=== PATIENT | female | born 2005 | race African-American/Black ===

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

== ENCOUNTER 2024-03-02 10:55 | Emergency (ER) | payer OTHER ==
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
[2024-03-02] MEDS ORDERED: IBUPROFEN 200 MG TAB PO ONE (15:22)
[2024-03-02 16:05] VITALS: BP 121/90; TEMP 97.7; O2SAT 100
== END 2024-03-02 15:33 | disposition home or self-care (01) ==
LOC: ER 10:55
DX: S29.012A Strain of muscle and tendon of back wall of thorax, initial encounter (principal); V49.50XA Passenger injured in collision with unspecified motor vehicles in traffic accident, initial encounter; M54.50 Low back pain, unspecified; R29.91 Unspecified symptoms and signs involving the musculoskeletal system
CPT/HCPCS: 70450; 71250; 72125; 74176; 99283

== ENCOUNTER 2024-12-01 10:42 | Emergency (ER) | payer BC ==
--- NOTE | 2024-12-01 12:29 | EDPHYS ---
Physician Documentation [facility] Name: Ricardo Alonzo Age: 19 yrs Sex: Female : 2005 Arrival Date: 12/01/2024 Time: 10:42 Bed 25 Private MD: ED Physician Slava Montalvo HPI: 12/01 12:22 This 19 yrs old Female presents to ER via Ambulatory with complaints of Eye lilli Pain. 12:22 The patient is experiencing burning. Onset: The symptoms/episode began/occurred 1 lilli day(s) ago. Duration: the symptoms are intermittent. Aggravated by nothing. Alleviated by nothing. Associated signs and symptoms: Pertinent positives: None. Pertinent negatives: None. Patient does not utilize any form of vision correction. Severity of symptoms: At their worst the symptoms were mild in the emergency department the symptoms are unchanged. The patient has not experienced similar symptoms in the past. 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 - Infectious Disease History:: Denies. - Social history:: Smoking status: Reported history of juuling and/or vaping. - Family history:: not pertinent. ROS: 12:22 Constitutional: Negative for fever, chills, and weight loss, ENT: Negative for injury, lilli pain, and discharge, Neck: Negative for injury, pain, and swelling, Cardiovascular: Negative for chest pain, palpitations, and edema, Respiratory: Negative for shortness of breath, cough, wheezing, and pleuritic chest pain, Abdomen/GI: Negative for abdominal pain, nausea, vomiting, diarrhea, and constipation, Back: Negative for injury and pain, : Negative for injury, bleeding, discharge, and swelling, MS/Extremity: Negative for injury and deformity, Skin: Negative for injury, rash, and discoloration, Neuro: Negative for headache, weakness, numbness, tingling, and seizure, Psych: Negative for depression, anxiety, suicide ideation, homicidal ideation, and hallucinations, Allergy/Immunology: Negative for hives, rash, and allergies, Endocrine: Negative for neck swelling, polydipsia, polyuria, polyphagia, and marked weight changes, Hematologic/Lymphatic: Negative for swollen nodes, abnormal bleeding, and unusual bruising, 12:22 Eyes: Positive for pain, Exam: 12:22 Constitutional: This is a well developed, well nourished patient who is awake, alert, lilli and in no acute distress. Head/Face: Normocephalic, atraumatic. Eyes: Pupils equal round and reactive to light, extra-ocular motions intact. Lids and lashes normal. Conjunctiva and sclera are non-icteric and not injected. Cornea within normal limits. Periorbital areas with no swelling, redness, or edema. ENT: Nares patent. No nasal discharge, no septal abnormalities noted. Tympanic membranes are normal and external auditory canals are clear. Oropharynx with no redness, swelling, or masses, exudates, or evidence of obstruction, uvula midline. Mucous membranes moist. Neck: Trachea midline, no thyromegaly or masses palpated, and no cervical lymphadenopathy. Supple, full range of motion without nuchal rigidity, or vertebral point tenderness. No Meningismus. Chest/axilla: Normal chest wall appearance and motion. Nontender with no deformity. No lesions are appreciated. Cardiovascular: Regular rate and rhythm with a normal S1 and S2. No gallops, murmurs, or rubs. Normal PMI, no JVD. No pulse deficits. Respiratory: Lungs have equal breath sounds bilaterally, clear to auscultation and percussion. No rales, rhonchi or wheezes noted. No increased work of breathing, no retractions or nasal flaring. Abdomen/GI: Soft, non-tender, with normal bowel sounds. No distension or tympany. No guarding or rebound. No evidence of tenderness throughout. Back: No spinal tenderness. No costovertebral tenderness. Full range of motion. Skin: Warm, dry with normal turgor. Normal color with no rashes, no lesions, and no evidence of cellulitis. MS/ Extremity: Pulses equal, no cyanosis. Neurovascular intact. Full, normal range of motion., bilateral aka Neuro: Awake and alert, GCS 15, oriented to person, place, time, and situation. Cranial nerves II-XII grossly intact. Motor strength 5/5 in all extremities. Sensory grossly intact. Cerebellar exam normal. Normal gait. Psych: Awake, alert, with orientation to person, place and time. Behavior, mood, and affect are within normal limits. 12:22 Eyes: Periorbital structures: appear normal, no acute changes, no abrasion, no cellulitis, no contusion, no ecchymosis, no erythema, no laceration, no swelling, Pupils: no acute changes, equal, round, and reactive to light and accomodation, Extraocular movements: no acute changes, Conjunctiva: normal, Corneas: are normal, Sclera: no appreciated abnormality, Anterior chamber: normal, no hyphema, on appreciated narrow angle closure, no acute changes, Lids and lashes: appear normal, no acute changes, funduscopic exam reveals no obvious abnormalities, Visual dos santos: are intact, Nystagmus: is not appreciated, Vital Signs: 10:58 BP 132 / 90; Pulse 67; Resp 16; Temp 98.3; Pulse Ox 100% on R/A; Weight 158.76 kg; dd2 Height 5 ft. 7 in. ; Pain 8/10; 12:38 BP 130 / 90; Pulse 71; Resp 17; ll1 13:10 BP 106 / 56; Pulse 54; Resp 18; Pulse Ox 100% ; rg5 14:00 BP 102 / 70; Pulse 59; Resp 18; Pulse Ox 100% ; rg5 15:00 BP 106 / 78; Pulse 81; Resp 18; Pulse Ox 100% ; rg5 16:45 BP 119 / 91; Pulse 77; Resp 18; Pulse Ox 100% ; rg5 10:58 Body Mass Index 54.82 (158.76 kg, 170.18 cm) dd2 10:58 Pain Scale: Adult dd2 Procedures: 17:17 Lumbar Puncture: Patient placed in left lateral decubitus position. Prepped with [facility] Betadine. Draped using sterile technique. Procedure unsuccessful. Patient tolerated well. will be rescheduled Friday as out patient, Dr Bunny SANTANA. MDM: 10:51 Medical Screening Exam initiated 11:07 Medical Screening Exam initiated [facility] 12:25 Differential diagnosis: Corneal abrasion of Corneal ulcer of Foreign body in Acute lilli iritis of Acute glaucoma in Ultraviolet keratitis in both eyes. Data reviewed: vital signs, nurses notes. Consideration of Admission/Observation Escalation of care including admission/observation considered. I considered the following discharge prescriptions or medication management in the emergency department Medications were administered in the Emergency Department. See MAR. Test considered but Not performed: Labs: NO LABS. Historians other than the Patient: PT WELL INFORMED. Care significantly affected by the following chronic conditions: NONE , OBESE. 12/01 12:39 Order name: CBC with Diff; Complete Time: 14: [facility] 12/01 12:39 Order name: CMP; Complete Time: 14: [facility] 12/01 12:39 Order name: UA Rfx Oj Cult if indicated; Complete Time: 14: [facility] 12/01 12:39 Order name: PREGU; Complete Time: 14: [facility] 12/01 12:39 Order name: PT-INR; Complete Time: 14: [facility] 12/01 12:39 Order name: CT Head Brain wo Cont; Complete Time: 14: [facility] 12/01 15:06 Order name: Lumbar Puncture Consent; Complete Time: 15:37 [facility] 12/01 15:06 Order name: Lumbar Puncture Setup; Complete Time: 15:37 [facility] Administered Medications: 13:08 Drug: NS 0.9% IV 500 ml 500 ml IV at 100 ml/hr once; to be given as a bolus over 30 rg5 minutes Volume: 500 ml; Route: IV; Rate: 100 ml/hr; Site: right antecubital; 13:40 Follow up: IV Status: Completed infusion; IV Intake: 500ml rg5 15:07 Follow up: IV Status: Completed infusion rg5 Disposition Summary: 12/01/24 16:41 Discharge Ordered Notes: Location: Home(12/01/24 16:41) lilli Problem: new(12/01/24 16:41) lilli Symptoms: have improved(12/01/24 16:41) lilli Condition: Stable(12/01/24 16:41) lilli Diagnosis - Headache lilli - Other visual disturbances - blurry lilli - Benign intracranial hypertension lilli Followup: lilli - With: Private Physician - When: 2 - 3 days - Reason: Recheck today's complaints, Continuance of care, Re-evaluation by your physician Followup: lilli - With: Michael Wheat MD - When: 2 - 3 days - Reason: Recheck today's complaints, Continuance of care, Re-evaluation by your physician Followup: lilli - With: Omar Alejandra MD - When: 2 - 3 days - Reason: Recheck today's complaints, Continuance of care, Re-evaluation by your physician Discharge Instructions: - Discharge Summary Sheet lilli - Blurred Vision, Adult lilli - General Headache Without Cause lilli - Visual Disturbances lilli - Obesity, Adult lilli - General Headache Without Cause, [id number] lilli - Obesity, Adult, Uyoa-fr-Verd lilli Forms: - Medication Reconciliation Form lilli - Antibiotic Education lilli - Prescription Opioid Use lilli - Patient Portal Instructions lilli - Leadership Thank You Letter lilli Signatures: Dispatcher [employer] EDTuyet Hitchcock, FISH CULTURIST-C FISH CULTURIST-Slava Anderson MD MD cha Gallardo, Rommel RN RN rg5 LISANDRA DSA RN RN dd2 Corrections: (The following items were deleted from the chart) 12:38 12:28 Home lilli lilli 12:38 12:28 new lilli lilli 12:38 12:28 have improved lilli lilli 12:38 12:28 Stable lilli lilli 12:38 12:28 Ocular pain, right eye lilli lilli 12:38 12:28 Ocular pain, left eye lilli lilli 17:19 15:11 Lumbar Puncture: Patient placed in left lateral decubitus position. lilli lilli
--- NOTE | 2024-12-01 12:29 | ER ---
Nurse's Notes [facility] Name: Ricardo Alonzo Age: 19 yrs Sex: Female : 2005 Arrival Date: 12/01/2024 Time: 10:42 Bed 25 Private MD: Diagnosis: Headache;Other visual disturbances-blurry;Benign intracranial hypertension Presentation: 12/01 10:58 Chief complaint: Patient states: REDNESS AND PAIN TO BOTH EYES THAT BEGAN THIS MORNING. dd2 Coronavirus screen: At this time, the client does not indicate any symptoms associated with coronavirus-19. Ebola Screen: No symptoms or risks identified at this time. Mechanism of Injury: No Mechanism of Injury. The patient denies any loss of vision. Initial Sepsis Screen: Does the patient meet any 2 criteria? No. Patient's initial sepsis screen is negative. Does the patient have a suspected source of infection? No. Patient's initial sepsis screen is negative. Risk Assessment: Do you want to hurt yourself or someone else? Patient reports no desire to harm self or others. Onset of symptoms was December 01, 2024. 10:58 Method Of Arrival: Ambulatory dd2 10:58 Acuity: GAMA 3 dd2 Triage Assessment: 11:01 General: Appears uncomfortable, Behavior is calm, cooperative, appropriate for age. dd2 Pain: Complains of pain in right eye and left eye Pain currently is 8 out of 10 on a pain scale. EENT: Sclera/Cornea are reddened in right eye and left eye Reports pain in right eye and left eye. 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 - Infectious Disease History:: Denies. - Social history:: Smoking status: Reported history of juuling and/or vaping. - Family history:: not pertinent. Screenin:00 [facility] ED Fall Risk Assessment (Adult) History of falling in the last 3 months, rg5 including since admission No falls in past 3 months (0 pts) Confusion or Disorientation No (0 pts) Intoxicated or Sedated No (0 pts) Impaired Gait No (0 pts) Mobility Assist Device Used No (0 pt) Altered Elimination No (0 pt) Score/Fall Risk Level 0 - 2 = Low Risk Oriented to surroundings, Maintained a safe environment. Abuse screen: Denies threats or abuse. Nutritional screening: No deficits noted. Tuberculosis screening: No symptoms or risk factors identified. Assessment: 11:37 Reassessment: No changes from previously documented assessment. Patient and/or family ll1 updated on plan of care and expected duration. Pain level reassessed. 12:42 Reassessment: No changes from previously documented assessment. Patient and/or family ll1 updated on plan of care and expected duration. Pain level reassessed. Patient is alert, oriented x 3, equal unlabored respirations, skin warm/dry/pink. 13:00 General: Appears in no apparent distress. uncomfortable, Behavior is calm, cooperative, rg5 appropriate for age. Pain: Complains of pain in right eye and left eye Quality of pain is described as aching. Neuro: Level of Consciousness is awake, alert, obeys commands. Cardiovascular: Denies chest pain, Patient's skin is warm and dry. Respiratory: Airway is patent Respiratory effort is even, unlabored. GI: Abdomen is round obese. : No signs and/or symptoms were reported regarding the genitourinary system. EENT: No signs and/or symptoms were reported regarding the EENT system. Eyes Reports pain in right eye and left eye. Derm: Skin is intact, Skin is dry, Skin is normal. Musculoskeletal: Circulation, motion, and sensation intact. Range of motion: intact in all extremities. 14:10 Reassessment: No changes from previously documented assessment. Patient and/or family rg5 updated on plan of care and expected duration. Pain level reassessed. Patient is alert, oriented x 3, equal unlabored respirations, skin warm/dry/pink. 15:00 Reassessment: No changes from previously documented assessment. Patient and/or family rg5 updated on plan of care and expected duration. Pain level reassessed. Patient is alert, oriented x 3, equal unlabored respirations, skin warm/dry/pink. 16:30 Reassessment: No changes from previously documented assessment. Patient and/or family rg5 updated on plan of care and expected duration. Pain level reassessed. Patient is alert, oriented x 3, equal unlabored respirations, skin warm/dry/pink. Vital Signs: 10:58 BP 132 / 90; Pulse 67; Resp 16; Temp 98.3; Pulse Ox 100% on R/A; Weight 158.76 kg; dd2 Height 5 ft. 7 in. ; Pain 8/10; 12:38 BP 130 / 90; Pulse 71; Resp 17; ll1 13:10 BP 106 / 56; Pulse 54; Resp 18; Pulse Ox 100% ; rg5 14:00 BP 102 / 70; Pulse 59; Resp 18; Pulse Ox 100% ; rg5 15:00 BP 106 / 78; Pulse 81; Resp 18; Pulse Ox 100% ; rg5 16:45 BP 119 / 91; Pulse 77; Resp 18; Pulse Ox 100% ; rg5 10:58 Body Mass Index 54.82 (158.76 kg, 170.18 cm) dd2 10:58 Pain Scale: Adult dd2 ED Course: 10:46 Patient arrived in ED. mr 10:51 Tuyet Christianson, [facility] kb 10:51 Slava Montalvo MD is Attending Physician. kb 11:01 Triage completed. dd2 11:01 Arm band placed on right wrist. dd2 11:07 Slava Montalvo MD is Attending Physician. lilli 11:37 Patient placed in an exam room, on a stretcher. ll1 12:28 Omar Alejandra MD is Referral Physician. lilli 12:42 Patient placed in an exam room, on a stretcher. ll1 12:46 Rafita Duff, RN is Primary Nurse. rg5 12:51 PT-INR Sent. bc6 12:52 CMP Sent. bc6 12:52 CBC with Diff Sent. bc6 12:52 Initial lab(s) drawn, by co, sent to lab. Inserted saline lock: 20 gauge in right bc6 antecubital area, using aseptic technique. Blood collected. Flushed with 10 mL NS. 13:00 Patient has correct armband on for positive identification. Side rails up X 1. Door rg5 closed. Noise minimized. 13:00 No provider procedures requiring assistance completed. rg5 13:03 CT Head Brain wo Cont In Process Unspecified. EDMS 16:41 Michael Wheat MD is Referral Physician. lilli 16:41 Omar Alejandra MD is Referral Physician. lilli 17:21 Provided Education on: post er care. rg5 17:21 IV discontinued, bleeding controlled, No redness/swelling at site. Pressure dressing rg5 applied. Administered Medications: 13:08 Drug: NS 0.9% IV 500 ml 500 ml IV at 100 ml/hr once; to be given as a bolus over 30 rg5 minutes Volume: 500 ml; Route: IV; Rate: 100 ml/hr; Site: right antecubital; 13:40 Follow up: IV Status: Completed infusion; IV Intake: 500ml rg5 15:07 Follow up: IV Status: Completed infusion rg5 Medication: 13:00 VIS not applicable for this client. rg5 Intake: 13:40 IV: 500ml; Total: 500ml. rg5 Outcome: 12:28 Discharge ordered by . lilli 16:41 Discharge ordered by . lilli 17:21 Discharged to home ambulatory, rg5 17:21 Condition: stable 17:21 Discharge instructions given to patient, 17:29 Patient left the ED. rg5 Signatures: Dispatcher [employer] EDMS Tuyet Christianson, CARRY IN WORKER-C CARRY IN WORKER-Ckb Slava Montalvo MD MD cha Rivera, Mary, Reg Reg mr Inna Aguirre, RN RN ll1 Daylin Tomlinson6 Rafita Duff RN RN rg5 LISANDRA DAS RN RN dd2
[2024-12-01 13:00] LABS: Absolute Lymphocytes (CBC) 2.4 K/uL (0.7-4.9); Hematocrit 36.2 % (36.0-45.0); Hemoglobin 12.3 g/dL (12.0-15.0); MCH 29.7 pg (27.0-35.0); MCHC 34.0 g/dL (32.0-36.0); MCV 87.4 fL (80-100); MPV 7.8 fL (7.6-11.3); Nucleated RBC Absolute Count 0.0 (0-0); Nucleated Red Blood Cells % 0.1 % (0-0); RBC Red Blood Cell Count 4.14 M/uL (3.86-4.86); White Blood Count 6.80 thou/uL (4.3-10.9)
[2024-12-01] MEDS ORDERED: NA CHLORIDE 0.9% 500 ML ONE (13:08)
[2024-12-01 13:14] LABS: PT Prothrombin Time 10.8 SECONDS (10-13.0); Protime INR 0.95
[2024-12-01 13:18] LABS: Sqamous Epithelial <5 /HPF (None Seen); Urine Culture Reflex Order NOT NEEDED; Urine Microscopic Reflex YN ORDER UMIC
[2024-12-01 13:20] LABS: ALT/SGPT 59.0 U/L (13-56); AST/SGOT 29.0 U/L (15-37); Albumin 3.3 g/dL (3.4-5.0); Albumin/Globulin Ratio 0.8 (1.1-1.8); Alkaline Phosphatase 40.0 U/L (45-117); Anion Gap 9.1 mEq/L (5.0-15.0); BUN Blood Urea Nitrogen 12.0 mg/dL (7-18); Globulin 4.2 g/dL (2.3-3.5); Glucose Level 95.0 mg/dL (74-106); Potassium 4.1 mEq/L (3.5-5.1)
--- NOTE | 2024-12-01 13:44 | RAD REPORT ---
EXAM: CT Head Brain Wo Cont HISTORY: HEADACHE COMPARISON: 03/02/2024 TECHNIQUE: Multiple contiguous axial images were obtained for a CT of the brain without contrast. Sag ittal and coronal reformats were performed. One or more of the following dose reduction techniques were used: Automated exposure control, adjus tment of the mA and kV according to patient size, and iterative reconstruction. Unless otherwise specified, incidental findings do not require dedicated imaging follow-up. FINDINGS: No evidence of hydrocephalus, intracranial hemorrhage, or extra-axial fluid collection. The brain is normal in morphology. The calvarium is intact. The visualized paranasal sinuses and mastoid air cells are essentially clear . IMPRESSION: No evidence of acute intracranial abnormality.
[2024-12-01] MEDS ORDERED: LIDOCAINE 1% 20 ML MDV ONE (15:32)
[2024-12-01 17:33] VITALS: TEMP 98.3; O2SAT 100
[2024-12-01 17:42] VITALS: BP 119/91
== END 2024-12-01 17:29 | disposition home or self-care (01) ==
LOC: ER 10:42
DX: R51.9 Headache, unspecified (principal); G93.2 Benign intracranial hypertension; H53.8 Other visual disturbances
CPT/HCPCS: 85025; 81001; 36415; 81025; 85610; 80053; 70450; 62270; 96360; 99284; J2003; J7040

== ENCOUNTER 2024-12-03 08:50 | Day surgery (SDC) | payer BC ==
[2024-12-03 10:15] VITALS: BMI 53.2
--- NOTE | 2024-12-03 11:27 | RAD REPORT ---
PROCEDURE: FLUOROSCOPY GUIDED LUMBAR PUNCTURE CLINICAL INDICATION: EYE PAIN COMPLICATIONS: No immediate complications. PROCEDURE DETAILS: Consent: Informed consent for the procedure including risks, benefits and alternatives was obtained a nd time-out was performed prior to the procedure. Preparation: The patient was positioned prone on the fluoroscopic table. Appropriate area of the back was prepared and draped using all elements of maximal sterile barrier technique including sterile gloves, sterile gown, cap, mask, large sterile sheet, hand hygiene and cutaneous antisepsis with 2% c hlorhexidine. Imaging prior to procedure: Plain radiographs of the lumbar spine. Procedure: Local anesthesia was administered. Under fluoroscopic guidance, a spinal needle was advanc ed into the subarachnoid space at the level of L3-4. Fluid obtained: 11 cc of clear CSF Opening pressure: Mildly elevated at 21 cm of water but this is still considered within normal range. Fluoroscopy time: 20 seconds Estimated blood loss: Less than 10 mL. IMPRESSION: Technically successful fluoroscopic-guided lumbar puncture as detailed.
[2024-12-03 15:10] VITALS: BP 113/62; TEMP 98.2; O2SAT 98
[2024-12-03 15:29] LABS: Color of Supernate Not Xanthochromic (Not Xantho); Color of fluid Colorless (COLORLESS)
== END 2024-12-03 13:12 | disposition home or self-care (01) ==
LOC: DS 08:50
PROVIDERS: ATTEND Ophthalmology
DX: G93.2 Benign intracranial hypertension (principal); R51.9 Headache, unspecified
CPT/HCPCS: 36415; 62328; 82945; 84157; 87070; 89050